=== PATIENT | female | born 1965 | race Two or more races ===

== ENCOUNTER 2016-08-26 20:56 | Emergency (ER) | payer BC ==
[~2016-08-26] VITALS: Ht 177.8 cm; Wt 72.6 kg
[2016-08-26 23:21] VITALS: BP 136/79
== END 2016-08-26 23:24 | disposition home or self-care (01) ==
LOC: ER 21:00
DX: S01.81XA Laceration without foreign body of other part of head, initial encounter (principal); W18.30XA Fall on same level, unspecified, initial encounter; Y93.89 Activity, other specified; Y92.89 Other specified places as the place of occurrence of the external cause; Y99.8 Other external cause status
CPT/HCPCS: 12011; 99283; A4606; A6402 ×2; Z7610

== ENCOUNTER 2022-08-04 03:15 | Emergency (ER) | payer BC ==
[~2022-08-04] VITALS: Ht 170.2 cm; Wt 68.0 kg
--- NOTE | 2022-08-04 03:27 | NUR ---
BIBFAMILY C/O R BREAST PAIN S/P GLF ON 07/30. PT A/OX4. TOLERATING R/A WELL WITH NO RESP DISTRESS. AMBULATORY WITH STEADY GAIT. SAFETY MEASURES IN PLACE.
--- NOTE | 2022-08-04 03:33 | NUR ---
PT SEEN BY DR. TRACE BORJAS
--- NOTE | 2022-08-04 03:48 | NUR ---
SUPERVISOR GLYCERIN AT PT'S BEDSIDE
[2022-08-04] MEDS ORDERED: ACETAMINOPHEN ES 500 MG TABLET ONE (04:05)
[2022-08-04] MEDS ORDERED: IBUPROFEN 600 MG TABLET ONE (04:06)
[2022-08-04] MEDS: ACETAMINOPHEN ES 500 MG TABLET PO ONE (04:08)
[2022-08-04] MEDS: IBUPROFEN 600 MG TABLET PO ONE (04:08)
[2022-08-04] MEDS ORDERED: IBUP-1953 PO (05:32)
--- NOTE | 2022-08-04 06:47 | NUR ---
Patient discharged to home in stable condition. Written and verbal after care instructions given. Patient verbalizes understanding of instruction.
[2022-08-04 06:48] VITALS: BP 107/55
== END 2022-08-04 06:49 | disposition home or self-care (01) ==
LOC: ER 03:17
DX: S20.01XA Contusion of right breast, initial encounter (principal); Z79.1 Long term (current) use of non-steroidal anti-inflammatories (NSAID); W01.0XXA Fall on same level from slipping, tripping and stumbling without subsequent striking against object, initial encounter; Y93.89 Activity, other specified; Y92.89 Other specified places as the place of occurrence of the external cause; Y99.8 Other external cause status
CPT/HCPCS: 71100-TC

== ENCOUNTER 2025-04-01 23:32 | Emergency (ER) | payer BC ==
[~2025-04-01] VITALS: Ht 172.7 cm; Wt 67.1 kg
[~2025-04-01 23:32] MED LIST: IBUP-1953 PO
[2025-04-01 23:56] VITALS: BP 130/85; TEMP 98.3; O2SAT 98
[2025-04-02] MEDS ORDERED: KETO10TA2 PO (01:37)
[2025-04-02] MEDS ORDERED: PENI500T PO (01:37)
[2025-04-02] MEDS: PENICILLIN V POTASSIUM 500 MG TABLET PO ONE (01:53)
== END 2025-04-02 01:54 | disposition home or self-care (01) ==
LOC: ER 23:35
DX: K08.89 Other specified disorders of teeth and supporting structures (principal); L03.211 Cellulitis of face